=== PATIENT | male | born 1980 | race Two or more races ===

== ENCOUNTER 2019-04-27 17:01 | Emergency (ER) | payer SELFPAY ==
--- NOTE | 2019-04-27 17:39 | EDM.PDOCBH ---
<Blu Saldana - Last Filed: 04/27/19 17:55> ED HPI GENERAL MEDICAL PROBLEM - General Chief Complaint: Drug or Alcohol Abuse Stated Complaint: NEEDS CLEARANCE FOR [place] Time Seen by Provider: 04/27/19 17:20 Source of Information: Reports: Patient, Other (Friend and certified court interpreter) History Limitations: Reports: Language Barrier - History of Present Illness INITIAL COMMENTS - FREE TEXT/NARRATIVE: 38-year-old male with chronic alcohol abuse, has not drank any alcohol for the last 4 days. He was taken to a local hospital 4 days ago, admitted for 24 hours and hydrated and observed and then discharged. He did not start drinking again and now it's been 4 days and is moderately agitated, confused, and his friend is having trouble keeping him focused. He is cooperative. He was taken to the clinic to be cleared for detox and they cannot do an EtOH level which was needed so they sent him over to the emergency room. Onset: Unknown/Unsure Associated Symptoms: Reports: Confusion. Denies: Nausea/Vomiting, Shortness of Breath - Related Data Allergies Allergy/AdvReac Type Severity Reaction Status Date / Time No Known Allergies Allergy Verified 04/27/19 17:15 Home Meds: Home Meds NK [No Known Home Meds] 04/27/19 [History] Social & Family History - Tobacco Use Smoking Status *Q: Never Smoker - Caffeine Use Caffeine Use: Reports: Coffee, Soda - Alcohol Use Days Per Week of Alcohol Use: 7 Number of Drinks Per Day: 24 Total Drinks Per Week: 168 - Recreational Drug Use Recreational Drug Use: No ED ROS GENERAL - Review of Systems Review Of Systems: See Below Constitutional: Reports: Malaise. Denies: Fever, Chills Respiratory: Denies: Shortness of Breath Cardiovascular: Denies: Chest Pain GI/Abdominal: Denies: Vomiting Neurological: Denies: Headache Psychiatric: Reports: Anxiety, Other (Patient is restless) ED EXAM, BEHAVIORAL HEALTH - Physical Exam Exam: See Below Exam Limited By: No Limitations General Appearance: Alert, No Apparent Distress (Looks anxious but in no distress), Anxious Eye Exam: Bilateral Eye: EOMI, Normal Inspection (No significant jaundice) Head: Atraumatic Respiratory/Chest: No Respiratory Distress, Lungs Clear Cardiovascular: Regular Rate, Rhythm, Tachycardia (Just mild tachycardia) GI/Abdominal: Non-Tender Extremities: Normal Inspection Neurological: Alert, No Motor/Sensory Deficits Psychiatric: Restless Skin Exam: Warm, Dry COURSE, BEHAVIORAL HEALTH COMP - Course Vital Signs: Last Vital Signs Temp 98.6 F 04/27/19 17:26 Pulse 95 04/27/19 20:23 Resp 16 04/27/19 20:23 BP 149/102 H 04/27/19 20:23 Pulse Ox 98 04/27/19 20:23 Orders, Labs, Meds: Active Orders 24 hr Category Date Time Status EKG Documentation Completion [RC] ASDIRECTED Care 04/27/19 19:40 Active EKG 12 Lead [EK] Stat Ther 04/27/19 19:40 Ordered Laboratory Tests 04/27/19 04/27/19 04/27/19 Range/Units 17:32 17:32 17:32 WBC 8.2 (4.5-11.0) K/uL RBC 5.72 (4.30-5.90) M/uL Hgb 16.8 H (12.0-15.0) g/dL Hct 49.0 (40.0-54.0) % MCV 86 (80-98) fL MCH 29 (27-31) pg MCHC 34 (32-36) % Plt Count 211 (150-400) K/uL Neut % (Auto) 68 H (36-66) % Lymph % (Auto) 18 L (24-44) % Island % (Auto) 13 H (2-6) % Eos % (Auto) 1 L (2-4) % Baso % (Auto) 0 (0-1) % Sodium 136 L (140-148) mmol/L Potassium 3.8 (3.6-5.2) mmol/L Chloride 100 (100-108) mmol/L Carbon Dioxide 24 (21-32) mmol/L Anion Gap 15.8 H (5.0-14.0) mmol/L BUN 17 (7-18) mg/dL Creatinine 0.9 (0.8-1.3) mg/dL Est Cr Clr Drug Dosing TNP Estimated GFR (MDRD) > 60 (>60) Glucose 120 H (74-106) mg/dL Calcium 9.6 (8.5-10.1) mg/dL Troponin I (0.000-0.056) ng/mL Urine Opiates Screen (NEGATIVE) Ur Oxycodone Screen (NEGATIVE) Urine Methadone Screen (NEGATIVE) Ur Propoxyphene Screen (NEGATIVE) Ur Barbiturates Screen (NEGATIVE) Ur Tricyclics Screen (NEGATIVE) Ur Phencyclidine Scrn (NEGATIVE) Ur Amphetamine Screen (NEGATIVE) U Methamphetamines Scrn (NEGATIVE) Urine MDMA Screen (NEGATIVE) U Benzodiazepines Scrn (NEGATIVE) U Cocaine Metab Screen (NEGATIVE) U Marijuana (THC) Screen (NEGATIVE) Ethyl Alcohol < 3 mg/dL 04/27/19 04/27/19 Range/Units 18:12 19:40 WBC (4.5-11.0) K/uL RBC (4.30-5.90) M/uL Hgb (12.0-15.0) g/dL Hct (40.0-54.0) % MCV (80-98) fL MCH (27-31) pg MCHC (32-36) % Plt Count (150-400) K/uL Neut % (Auto) (36-66) % Lymph % (Auto) (24-44) % Island % (Auto) (2-6) % Eos % (Auto) (2-4) % Baso % (Auto) (0-1) % Sodium (140-148) mmol/L Potassium (3.6-5.2) mmol/L Chloride (100-108) mmol/L Carbon Dioxide (21-32) mmol/L Anion Gap (5.0-14.0) mmol/L BUN (7-18) mg/dL Creatinine (0.8-1.3) mg/dL Est Cr Clr Drug Dosing Estimated GFR (MDRD) (>60) Glucose (74-106) mg/dL Calcium (8.5-10.1) mg/dL Troponin I < 0.017 (0.000-0.056) ng/mL Urine Opiates Screen Negative (NEGATIVE) Ur Oxycodone Screen Negative (NEGATIVE) Urine Methadone Screen Negative (NEGATIVE) Ur Propoxyphene Screen Negative (NEGATIVE) Ur Barbiturates Screen Negative (NEGATIVE) Ur Tricyclics Screen Negative (NEGATIVE) Ur Phencyclidine Scrn Negative (NEGATIVE) Ur Amphetamine Screen Negative (NEGATIVE) U Methamphetamines Scrn Negative (NEGATIVE) Urine MDMA Screen Negative (NEGATIVE) U Benzodiazepines Scrn Negative (NEGATIVE) U Cocaine Metab Screen Negative (NEGATIVE) U Marijuana (THC) Screen Negative (NEGATIVE) Ethyl Alcohol mg/dL Medications Discontinued Medications Generic Name Dose Route Start Last Admin Trade Name Ambar PRN Reason Stop Dose Admin Acetaminophen 650 mg 04/27/19 19:54 04/27/19 20:15 Tylenol PO 04/27/19 19:55 650 mg NOW ONE Administration Lorazepam 1 mg 04/27/19 20:18 04/27/19 20:44 Ativan PO 04/27/19 20:19 1 mg ONETIME ONE Administration Re-Assessment/Re-Exam: EtOH, CBC and BMP were obtained. Hopefully he can be admitted for a couple more days at detox but there is a language barrier which will have to be resolved. CBC is normal. EtOH and BMP are still pending, Officer assumed care pending levels. Departure - Departure Disposition: Home, Self-Care 01 Clinical Impression: Chest wall pain - Discharge Information Instructions: Nonspecific Chest Pain, [id number] Referrals: PCP,None [Primary Care Provider] - Forms: ED Department Discharge Additional Instructions: Use the ibuprofen as needed for pain control, please followup with your primary care provider in 3-5 days if not better, please call return to the emergency department with worsening of symptoms. - My Orders Last 24 Hours: My Active Orders 04/27/19 19:40 EKG Documentation Completion [RC] ASDIRECTED EKG 12 Lead [EK] Stat - Assessment/Plan Last 24 Hours: My Active Orders 04/27/19 19:40 EKG Documentation Completion [RC] ASDIRECTED EKG 12 Lead [EK] Stat <Uzair Simon - Last Filed: 04/27/19 21:51> COURSE, BEHAVIORAL HEALTH COMP - Course Re-Assessment/Re-Exam: Took over care from Dr. Saldana this gentleman does not speak [place] so there is a significant language barrier. Was interviewed by the detoxification facility investigator internal revenue who felt he was actively hallucinating both visually and auditory therefore could not be admitted to the detoxification facility. On my observation he is quite calm when I performed the CIWA scale he would be a 1 for his headache of which he is not taking any medication. I did get the professional investigator internal revenue to help interview him. We were able to discover he is not having hallucinations he has been seeing some spots in his eyes however they have been going on for over a year there is no auditory hallucinations. He is not tremulous his alcohol level is 0. I asked him why he presented to the emergency department he states is for chest pain. When I had the opportunity to review the records from [facility] he was evaluated in the emergency department for chest pain with extensive work-up blood work EKG chest x-ray CT angiogram of the chest with CT of the abdomen. His troponin and EKG were normal angiogram was negative for any pulmonary embolism but no acute process could be appreciated in the abdomen discharged home with the possibility of bronchitis placed on antibiotic azithromycin. He does admit to alcohol use he estimates 5 beers per day he has not had any alcohol for 4 days his alcohol level 4 days ago was 186, further working with the certified court interpreter he did admit to injuring himself a couple of weeks ago causing this chest wall pain Departure - Departure Time of Disposition: 21:50 Condition: Fair - Assessment/Plan Plan: Assessment Acuity = acute Site and laterality = chest wall pain complicating the patient with history of alcohol abuse Etiology = secondary trauma Manifestations = none Location of injury = Home Lab values = CBC, CMP, troponin, drug screen and alcohol were all negative here , review of the CiWaa scale with an certified court interpreter present his score is now 3 Plan He will be discharged home ibuprofen 600 mg p.o. 4 times daily as needed total # 30 follow-up with primary care 3 to 5 days if not better This note was dictated using [employer] voice recognition software please call with any questions on syntax or grammar.
[2019-04-27] MEDS ORDERED: Acetaminophen 325 MG Tab PO ONE (19:54)
[2019-04-27] MEDS ORDERED: LORazepam 1 MG Tab PO ONE (20:18)
== END 2019-04-27 22:59 | disposition home or self-care (01) ==
LOC: JP.ED 17:01 → EDBD 17:01 → JP.ED 22:59
DX: R07.89 Other chest pain (principal)
CPT/HCPCS: 36415; 80048; 80305; 80320; 84484; 85025; 93005; 93010; 99283; 99285; A9270; G0480

== ENCOUNTER 2019-04-28 14:07 | Emergency (ER) | payer SELFPAY ==
--- NOTE | 2019-04-28 16:12 | EDM.PDOCBH ---
ED HPI GENERAL MEDICAL PROBLEM - General Chief Complaint: Behavioral/Psych Stated Complaint: MEDICAL [facility] [place] Time Seen by Provider: 04/28/19 15:55 Source of Information: Reports: Patient, Family, Old Records, Police History Limitations: Reports: No Limitations - History of Present Illness INITIAL COMMENTS - FREE TEXT/NARRATIVE: 38 yo male was brought here last night for screening for medical clearance before going to [place] for alcohol abuse. His brother knowing that Kwaku was "illegally" in this county took him home from the ER. Today Kwaku was caught by police trying to get into locked cars and when approached was acting strangely and did not speak any Indonesian so was brought to the ER for medical clearance by EMS. Initially we didn't know anything about this kp, but eventually got the brother to come in and then [employer] ID him as having been previously deported and never left. Kwaku denies any use of alcohol today. His brother states he has never had withdrawal, but drinks about 12 beers per day. Denies use of street drugs. Labs from last nights visit show him to not have any significant issues there. Onset: Unknown/Unsure Duration: Chronic Location: Reports: Generalized Quality: Reports: Other (no pain reported. ) Severity: Mild Improves with: Reports: Other (alcohol abstinence.) Worsens with: Reports: Other (drinking ETOH) Context: Reports: Other (see HPI) Associated Symptoms: Reports: No Other Symptoms Treatments APPLICATIONS DEVELOPMENT CONSULTANT: Reports: Other (see below) (none) - Related Data Allergies Allergy/AdvReac Type Severity Reaction Status Date / Time No Known Allergies Allergy Verified 04/28/19 15:51 Home Meds: Home Meds Azithromycin 1 tab PO DAILY 04/28/19 [History] LORazepam 1 mg PO Q4HR PRN #14 tablet 04/28/19 [Rx] ED ROS GENERAL - Review of Systems Review Of Systems: Comprehensive ROS is negative, except as noted in HPI. Constitutional: Reports: No Symptoms, Other (armored cable machine operator used for this visit.) ED EXAM, BEHAVIORAL HEALTH - Physical Exam Exam: See Below Exam Limited By: No Limitations General Appearance: Alert, WD/WN, No Apparent Distress Eye Exam: Bilateral Eye: Normal Inspection Ears: Normal External Exam, Normal Canal, Hearing Grossly Normal, Normal TMs Nose: Normal Inspection, No Blood Throat/Mouth: Normal Inspection, Normal Lips, Normal Oropharynx, Normal Voice, No Airway Compromise Head: Atraumatic, Normocephalic Neck: Normal Inspection, Non-Tender Respiratory/Chest: No Respiratory Distress, Lungs Clear, Normal Breath Sounds, No Accessory Muscle Use Cardiovascular: Normal Peripheral Pulses, Regular Rate, Rhythm, No Edema GI/Abdominal: Normal Bowel Sounds, Soft, Non-Tender, No Distention Back Exam: Normal Inspection. No: CVA Tenderness (R), CVA Tenderness (L) Extremities: Normal Inspection, Normal Range of Motion, Non-Tender, No Pedal Edema Neurological: Alert, Normal Mood/Affect, CN II-XII Intact, No Motor/Sensory Deficits, Oriented x 3 Psychiatric: Alert, Normal Affect, Normal Cognition, Normal Mood Skin Exam: Warm, Dry, Intact, Normal color, No rash COURSE, BEHAVIORAL HEALTH COMP - Course Vital Signs: Last Vital Signs Temp 37.6 C 04/28/19 15:43 Pulse 134 H 04/28/19 15:43 Resp 26 H 04/28/19 15:43 BP 156/106 H 04/28/19 15:43 Pulse Ox 95 04/28/19 15:43 Departure - Departure Time of Disposition: 16:14 Disposition: Home, Self-Care 01 Condition: Fair Clinical Impression: ETOH abuse - Discharge Information *PRESCRIPTION DRUG MONITORING PROGRAM REVIEWED*: No *COPY OF PRESCRIPTION DRUG MONITORING REPORT IN PATIENT WARREN: No Prescriptions: LORazepam 1 mg PO Q4HR PRN #14 tablet PRN Reason: Withdrawal Symptoms Referrals: PCP,None [Primary Care Provider] - Additional Instructions: Use lorazepam as directed. Recheck as needed.
== END 2019-04-28 17:09 | disposition home or self-care (01) ==
LOC: JP.ED 14:07 → MERGE 14:07 → EDBD 14:07 → JP.ED 17:09
DX: F10.10 Alcohol abuse, uncomplicated (principal)
CPT/HCPCS: 99282; 99283